=== PATIENT | male | born 1980 | race Caucasian/White ===

== ENCOUNTER 2017-03-02 20:56 | Emergency (ER) | payer OTHER ==
[2017-03-02 21:06] VITALS: BMI 33.4
[2017-03-02] MEDS ORDERED: TORADOL 60 MG VIAL IM ONE (21:37)
[2017-03-02] MEDS ORDERED: TORADOL 60 MG VIAL ONE (21:41)
--- NOTE | 2017-03-02 21:41 | DR.GENAD ---
HPI - Complaint/Symptoms Chief Complaint Doctors Comments: Patient states he was attempting to open a jammed door in [facility] and hit his right hand on the door about an hour ago. states the pain is 10 of 10 worst when he moves his fingers. States he has broken his 5th MC on his right hand before. He denies chest pain, SoB, cold, cough, fever or chills. States he can move his fingers but the little finger will not straighten out completely. Chief Complaint:: PT WAS ATTEMPTING TO OPEN A DOOR IN THE [facility]IDENT[facility] AND JAMMED HIS RT HAND - Nurses notes reviewed Nurses Notes Review: Yes - Source History Provided: Patient - Mode of Arrival Mode of Arrival: Ambulatory - Timing Onset of Chief Complaint: 03/02/17 Came on: Suddenly - Duration Duration: Constant How lon Duration: Hours - Location Location: right hand - Severity Severity: Severe - Modifying Factors Worsens:: movement Improves:: nothing PMH - PMH Past Medical History: Yes Past Medical History: Seizures Past Surgical History: Yes Surgical History: Ortho Surgery - Family History History of Family Medical Conditions: Yes Family Medical History: Cancer, Hypertension - Social History Alcohol Use: None Do you use any recreational Drugs:: No Lives With: Family Lives Where: Home - infectious screening In the last 2 months have you had wt loss of >10#?: NO Have you had fever, night sweats or hemotysis?: No Have you traveled outside the country in the last 6 months?: No Isolation: Standard ROS - Review of Systems Constitutional: No Symptoms Reported. negative: See HPI, Chills, Diaphoresis, Fever, Malaise, Weakness, Irritable, Fatigue, Loss of Appetite, Other Eyes: No Symptoms Reported ENTM: No Symptoms Reported Respiratoy: No Symptoms Reported. negative: See HPI, Productive Cough, Non- Productive Cough, Moist Cough, Dry Cough, Hacking Cough, Barking Cough, Brassy Cough, Orthopnea, Short of Breath, Stridor, Wheezing, Hemoptysis, Other Cardiovascular: No Symptoms Reported Gastrointestinal/Abdominal: No Symptoms Reported Genitourinary: No Symptoms Reported. negative: See HPI, Discharge, Dysuria, Frequency, Hematuria, Pain, Bleeding, Other Neurological: No Symptoms Reported Musculoskeletal: Right, Hand Integumentary: No Symptoms Reported, Bruises (right dorsal hand) Hematologic/Lymphatic: No Symptoms Reported. negative: See HPI, Anemia, Blood Clots, Easy Bleeding, Easy Bruising, Swollen Glands, Lymphadenopathy, Other Endocrine: No Symptoms Reported Psychiatric: No Symptoms Reported. negative: See HPI, Anxiety, Depression, Hallucinations, Excessive crying, Suicidal, Other PE - Vital Signs Vitals: Temperature 98.3 F Pulse Rate 88 Respiratory Rate 18 Blood Pressure [Left Arm] 144/94 Blood Pressure 142/101 O2 Sat by Pulse Oximetry 97 - General Limitations: No Limitations General Appearance: Alert, In Distress (moderate) - Head Head Exam: Normal Inspection, Atraumatic, Normocephalic - Eyes Eye exam: Normal Appearance, PERRL, EOMI. negative: Scleral Icterus, Conjunctival Injection, Nystagmus, Miosis, Mydrasis, Periorbital Swelling, Periorbital Tenderness, Other - ENT ENT Exam: Normal Exam, Normal Oropharynx, Normal External Ear Exam, Mucous Membranes Moist, TM's Normal Bilaterally External Ear Exam: Normal External Inspection TM/Canal Exam: Bilateral Normal Nose Exam: Normal Nose Exam Mouth Exam: Normal Inspection Throat Exam: Normal Inspection - Neck Neck Exam: Normal Inspection, Full ROM, Trachea Midline - Chest Chest Inspection: Normal Inspection, Symmetric Chest Wall Rise - Respiratory Respiratory Exam: Normal Lung Sounds Bilat Respiratory Exam: Bilateral Clear to Auscultation - Cardiovascular Cardiovascular Exam: Regular Rate, Normal Rhythm, Normal Heart Sounds - Abdominal Exam Abdominal Exam: Normal Inspection, Normal Bowel Sounds, Soft Abdominal Tenderness: negative: RUQ, RLQ, LUQ, LLQ, Epigastrium, Suprapubic, Diffuse, Mild, Moderate, Severe, Other - Extremities Extremities Exam: Normal Inspection, Full ROM, Tenderness (right hand tender with swelling, erythema, bruising dorsal hand), Normal Capillary Refill. negative: Edema, Joint Swelling, Calf Tenderness, Other - Back Back Exam: Normal Inspection, Full ROM - Neurologic Neurological Exam: Alert, Oriented X3, CN II-XII Intact, Normal Gait, Reflexes Normal - Psychiatric Psychiatric Exam: Normal Affect, Normal Mood - Skin Skin Exam: Warm, Dry, Intact, Normal Color ROR - Labs Reviewed Laboratory Results Reviewed?: Yes (all x-ray results reviewed and discussed with patient) - XRAY XRAY Interpreted by: Self (right hand: Old fracture 5th MC with extensive wiring; cannot rule out new fracture.) - Diagnosis Discharge Problem: old 5th metacarpal fracture, Hematoma, Puncture wound Contusion of right hand Qualifiers: Encounter type: initial encounter Qualified Code(s): S60.221A - Contusion of right hand, initial encounter - Discharge Plan Disposition: HOME, SELF-CARE Condition: Stable Prescriptions: Ibuprofen [MOTRIN TAB 800 MG *] 800 mg PO Q8H PRN #30 tab PRN Reason: Pain/Inflammation Mupirocin Oint [BACTROBAN OINT 2%] 1 applic EXT BID #22 gm - Follow ups/Referrals Follow ups/Referrals: NFD,None [Primary Care Provider] - 3 days JUSTINA ROWLAND [STAFF PHYSICIAN] - 3 days - Instructions Instructions: Hematoma, Metacarpal Fracture, [id number], Musculoskeletal Pain
[2017-03-02] MEDS ORDERED: BACITRACIN ZINC ONE (22:30)
[2017-03-02] MEDS ORDERED: BACTROBAN OINT TOP ONE (22:30)
[2017-03-02 22:55] VITALS: BP 142/94
--- NOTE | 2017-03-02 23:57 | RAD ---
Right hand-three views Indication: Right hand pain after trauma. Findings: Old right little finger fracture with hardware in position noted. Carpometacarpal joint DJD noted at the right little finger. Triscaphe DJD noted. There is no cortical lucency or malalignment seen. Impression: No acute fracture. Posttraumatic degenerative changes. Reported By:
== END 2017-03-02 22:52 | disposition home or self-care (01) ==
LOC: ER 20:56
PROC: 2W3LX1Z Immobilization of Right Lower Extremity using Splint (ICD-10-PCS; principal; 2017-03-02)
DX: S62.306A Unspecified fracture of fifth metacarpal bone, right hand, initial encounter for closed fracture (principal); S60.221A Contusion of right hand, initial encounter; S61.431A Puncture wound without foreign body of right hand, initial encounter; W23.1XXA Caught, crushed, jammed, or pinched between stationary objects, initial encounter; Y92.89 Other specified places as the place of occurrence of the external cause
CPT/HCPCS: 29260; 73130; 96372; 99282; J1885

== ENCOUNTER 2021-09-14 15:25 | Observation (INO) ==
[2021-09-14 16:00] LABS: BASOPHILS # (AUTO) 0.1 X10^3/uL (0.0-0.1); BASOPHILS % (AUTO) 0.9 % (0.2-1.0); EOSINOPHILS # (AUTO) 0.3 x10^3/uL (0.0-0.2); EOSINOPHILS % (AUTO) 3.9 % (0.9-2.9); HEMATOCRIT 40.4 % (42.0-54.0); HEMOGLOBIN 13.8 g/dL (13.5-18.0); LYMPHOCYTES # (AUTO) 2.5 X10^3/uL (1.3-2.9); LYMPHOCYTES % (AUTO) 35.2 % (21.0-51.0); MEAN CORPUSCULAR HEMOGLOBIN 31.4 pg (27.0-34.0); MEAN CORPUSCULAR HGB CONC 34.3 g/dL (33.0-35.0); MEAN CORPUSCULAR VOLUME 91.5 fL (80.0-100.0); MEAN PLATELET VOLUME 7.7 fL (7.4-11.0); MONOCYTES # (AUTO) 0.5 x10^3/uL (0.3-0.8); MONOCYTES % (AUTO) 7.4 % (0.0-13.0); NEUTROPHILS # (AUTO) 3.8 x10^3/uL (2.2-4.8); NEUTROPHILS % (AUTO) 52.6 % (42.0-75.0); RED BLOOD COUNT 4.41 X10^6/uL (4.7-6.0); WHITE BLOOD COUNT 7.2 X10^3/uL (3.6-10.0)
[2021-09-14 16:01] LABS: BILIRUBIN,URINE NEGATIVE (NEGATIVE); BLOOD/HEMOGLOBIN,URINE NEGATIVE (NEGATIVE); GLUCOSE, URINE NEGATIVE (NEGATIVE); KETONES,URINE NEGATIVE (NEGATIVE); LEUKOCYTE ESTERASE ,URINE NEGATIVE (NEGATIVE); NITRITES,URINE NEGATIVE (NEGATIVE); PROTEIN,URINE 1+ (NEGATIVE); UROBILINOGEN,URINE NORMAL (NORMAL)
[2021-09-14 16:22] LABS: ALANINE AMINOTRANSFERASE 24 Units/L (12-78); ALBUMIN 3.4 g/dL (3.4-5.0); ALKALINE PHOSPHATASE 84 Units/L (46-116); ASPARTATE AMINO TRANSFERASE 19 Units/L (15-37); BLOOD UREA NITROGEN 10 mg/dL (7-18); CALCIUM 8.9 mg/dL (8.5-10.1); CHLORIDE 102 mmol/L (98-107); COR NA(FOR HYPERGLY) 139 mmol/L (136-145); CREATININE 1.12 mg/dL (0.70-1.30); SODIUM 138 mmol/L (136-145); TOTAL PROTEIN 7.3 g/dL (6.4-8.2); eGFR NON BLACK RACES > 60 (>60)
[2021-09-14 16:22] LABS: APPEARANCE,URINE SLIGHTLY HAZY (CLEAR); COLOR,URINE YELLOW (YELLOW)
--- NOTE | 2021-09-14 16:27 | DR.PSYCH ---
HPI Time Seen Time Seen by Provider: 09/14/21 15:44 PCP Primary Care Physician: NFD Complaint Chief Complaint Doctors Comments: 40 y/o male presents with worsening R inguinal hernia. Has been fighting it for several months. Usually can get it back down on his own. Area has been more swollen, painful over the past week. Pain is sharp, of the R inguinal region. Having associated adominal cramping, spitting up. Pain does not radiate. Worse with palpation, movement. Nothing makes it better. 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 Pt was in [facility], earlier this year, for suicidal ideation. Pt has been off pain meds/drugs x 4 days. Is getting frustrated with the hernia pain, has been feeling suicidal due to the pain. Has considered shooting up heroin to end his pain. Pt presents voluntarily to the ER for help. Chief Complaint:: PT REPORTS THAT HE HAS A HERNIA TO HIS RIGHT GROIN THAT IS GOING INTO HIS TESTICAL , PT STATES I AM OFF OF PILLS , HEROIN , AND METH FOR FOUR DAYS - PT STATES " I AM HURTING AND CAN'T GET ANY RELIEF AND I AM GOING TO START USING AGAIN " MY STATES I WANT TO KILL MY SELF BECAUSE OF THE PAIN AND MY PLAN IS SHOOTING UP ".BR Self Treatment fo Chief Complaint: NONE Source History Provided: Patient Mode of Arrival Mode of Arrival: Ambulatory Timing Onset of Chief Complaint: 09/14/21 Context Ideation: Suicidal Plan: Other History of: Suicidal Thoughts Medication Compliance: No Quality Quality: None Hallucinations: None Associated signs and symptoms Intoxification: Marijuana, Cocaine and Amphetamines PMH PMH Past Medical History: Yes Past Medical History: Kidney Stones Past Surgical History: Yes Surgical History: Ortho Surgery Family History History of Family Medical Conditions: Yes Family Medical History: Diabetes Mellitus, Cancer, [place], Coronary Artery Disease, Heart Failure, Sudden Cardiac and Hypertension Social History Does patient currently use any type of tobacco product: Yes Have you used tobacco products in the last 12 months: Yes Type of Tobacco Use: Cigarettes Alcohol Use: None Do you use any recreational Drugs:: Yes (HEROIN, NORCO, THC, METH) Lives Where: Homeless Infectious screening In the last 2 months have you had wt loss of >10#?: NO Have you had fever, night sweats or hemotysis?: No Have you traveled outside the country in the last 6 months?: No Isolation: Standard ROS Review of Systems Constitutional: No Symptoms Reported Eyes: No Symptoms Reported ENTM: No Symptoms Reported Respiratoy: No Symptoms Reported Cardiovascular: No Symptoms Reported Gastrointestinal/Abdominal: See HPI Genitourinary: No Symptoms Reported Neurological: No Symptoms Reported Musculoskeletal: No Symptoms Reported Integumentary: No Symptoms Reported Hematologic/Lymphatic: No Symptoms Reported Psychiatric: Depression and Suicidal (ideations due to hernia pain) PE Vitals Vitals: Temperature 96.2 F Pulse Rate 104 Respiratory Rate 18 Blood Pressure [Right Arm] 164/90 Blood Pressure [Left Arm] 147/79 Blood Pressure 145/104 O2 Sat by Pulse Oximetry 98 General Limitations: No Limitations General Appearance: Alert and In No Apparent Distress Head Head Exam: Normal Inspection Eyes Eye exam: PERRL and EOMI ENT ENT Exam: Normal Oropharynx and Mucous Membranes Moist Respiratory Respiratory Exam: Normal Lung Sounds Bilat; negative Accessory Muscle Use or Respiratory Distress Cardiovascular Cardiovascular Exam: Regular Rate, Normal Rhythm and Normal Heart Sounds Abdominal Exam Abdominal Exam: Hernia (+ large R inguinal hernia, firm, tender, unable to reduce. + extends into R hemiscrotum) Extremities Extremities Exam: Normal Inspection and Full ROM; negative Tenderness Back Back Exam: Normal Inspection Neurologic Neurological Exam: Alert, Oriented X3 and CN II-XII Intact Psychiatric Psychiatric Exam: Normal Affect, Normal Mood and Other (Pt not acutely suicidal. Is frustrated regarding his chronic R hernia.); negative Homicidal Ideation or Suicidal Ideation Skin Skin Exam: Warm and Dry MDM Differential Diagnosis Differential diagnosis: Depression, Substance abuse and Suicidal COURSE Treatment Treatment: 40 y/o male with chronic hernia, worsened over the past week. Is now incarcerated, but probably not strangulated. W/u initiated. Given IV fluids. Labs are acceptable. Lactic acid 1.1, wnl. CT of abd/pelvis pending. Discussed with covering surgeon, Dr Bennett. He will admit the pt and repair the hernia in the AM. Pt informed of plan, to have hernia repaired in am. He is ok with that game plan, he is not suicidal, especially now that his hernia will be repaired tomorrow. Pt is not placed on a 1013. ROR Labs Reviewed Laboratory Results Reviewed?: Yes Result Diagrams: 09/14/21 15:50 09/14/21 15:50 Laboratory: WBC 7.2 X10^3/uL (3.6-10.0) 09/14/21 15:50 RBC 4.41 X10^6/uL (4.7-6.0) L 09/14/21 15:50 Hgb 13.8 g/dL (13.5-18.0) 09/14/21 15:50 Hct 40.4 % (42.0-54.0) L 09/14/21 15:50 MCV 91.5 fL (80.0-100.0) 09/14/21 15:50 MCH 31.4 pg (27.0-34.0) 09/14/21 15:50 MCHC 34.3 g/dL (33.0-35.0) 09/14/21 15:50 RDW 14.0 % (11.6-16.5) 09/14/21 15:50 Plt Count 242 X10^3/uL (150.0-450.0) 09/14/21 15:50 MPV 7.7 fL (7.4-11.0) 09/14/21 15:50 Neut % (Auto) 52.6 % (42.0-75.0) 09/14/21 15:50 Lymph % (Auto) 35.2 % (21.0-51.0) 09/14/21 15:50 [place] % (Auto) 7.4 % (0.0-13.0) 09/14/21 15:50 Eos % (Auto) 3.9 % (0.9-2.9) H 09/14/21 15:50 Baso % (Auto) 0.9 % (0.2-1.0) 09/14/21 15:50 Neut # (Auto) 3.8 x10^3/uL (2.2-4.8) 09/14/21 15:50 Lymph # (Auto) 2.5 X10^3/uL (1.3-2.9) 09/14/21 15:50 [place] # (Auto) 0.5 x10^3/uL (0.3-0.8) 09/14/21 15:50 Eos # (Auto) 0.3 x10^3/uL (0.0-0.2) H 09/14/21 15:50 Baso # (Auto) 0.1 X10^3/uL (0.0-0.1) 09/14/21 15:50 Absolute Nucleated RBC 0.1 /100WBC 09/14/21 15:50 Sodium 138 mmol/L (136-145) 09/14/21 15:50 Corrected Sodium 139 mmol/L (136-145) 09/14/21 15:50 Potassium 4.1 mmol/L (3.5-5.1) 09/14/21 15:50 Chloride 102 mmol/L (98-107) 09/14/21 15:50 Carbon Dioxide 31.0 mmol/L (21-32) 09/14/21 15:50 BUN 10 mg/dL (7-18) 09/14/21 15:50 Creatinine 1.12 mg/dL (0.70-1.30) 09/14/21 15:50 Est GFR (MDRD) Af Amer > 60 (>60) 09/14/21 15:50 Est GFR (MDRD) Non-Af > 60 (>60) 09/14/21 15:50 Glucose 128 mg/dL (65-99) H 09/14/21 15:50 Lactic Acid 1.1 mmol/L (0.4-2.0) 09/14/21 17:00 Calcium 8.9 mg/dL (8.5-10.1) 09/14/21 15:50 Corrected Calcium TNP 09/14/21 15:50 Total Bilirubin 0.40 mg/dL (0.2-1.0) 09/14/21 15:50 AST 19 Units/L (15-37) 09/14/21 15:50 ALT 24 Units/L (12-78) 09/14/21 15:50 Alkaline Phosphatase 84 Units/L (46-116) 09/14/21 15:50 Total Protein 7.3 g/dL (6.4-8.2) 09/14/21 15:50 Albumin 3.4 g/dL (3.4-5.0) 09/14/21 15:50 Globulin 3.9 g/dL (2.5-4.5) 09/14/21 15:50 Albumin/Globulin Ratio 0.9 Ratio (1.1-2.1) L 09/14/21 15:50 Specimen Type Clean catch urine 09/14/21 15:51 Urine Color Yellow (YELLOW) 09/14/21 15:51 Urine Appearance Slightly hazy (CLEAR) 09/14/21 15:51 Urine pH 6.0 (5.0 - 8.0) 09/14/21 15:51 Ur Specific [place] 1.025 (1.000-1.030) 09/14/21 15:51 Urine Protein 1+ (NEGATIVE) 09/14/21 15:51 Urine Glucose (UA) Negative (NEGATIVE) 09/14/21 15:51 Urine Ketones Negative (NEGATIVE) 09/14/21 15:51 Urine Blood Negative (NEGATIVE) 09/14/21 15:51 Urine Nitrite Negative (NEGATIVE) 09/14/21 15:51 Urine Bilirubin Negative (NEGATIVE) 09/14/21 15:51 Urine Urobilinogen Normal (NORMAL) 09/14/21 15:51 Ur Leukocyte Esterase Negative (NEGATIVE) 09/14/21 15:51 Urine RBC 0-2 /HPF (0-3) 09/14/21 15:51 Urine WBC 0-2 /HPF (0-5) 09/14/21 15:51 Ur Squamous Epith Cells Rare /HPF (NEGATIVE) 09/14/21 15:51 Urine Bacteria Trace /HPF (NEGATIVE) 09/14/21 15:51 Ur Culture Indicated? No/not indicated 09/14/21 15:51 Urine Opiates Screen Negative (NEG=<300) 09/14/21 15:51 Urine Methadone Screen Negative (NEG=<300) 09/14/21 15:51 Ur Barbiturates Screen Negative (NEG=<200) 09/14/21 15:51 Ur Phencyclidine Scrn Negative (NEG=<25) 09/14/21 15:51 Ur Amphetamines Screen Negative (NEG=<1000) 09/14/21 15:51 U Benzodiazepines Scrn Negative (NEG=<200) 09/14/21 15:51 Urine Cocaine Screen Negative (NEG=<300) 09/14/21 15:51 U Marijuana (THC) Screen Positive (NEG=<50) A 09/14/21 15:51 SARS-CoV-2 (PCR) Negative (NEGATIVE) 09/14/21 15:51 XRAY XRAY Interpreted by: Self X-ray Results: CT abd/pelvis with large R inguinal hernia, extending into scrotum. Opioid Opioid Risk Tool Age (Raymundo box if 16-45): Yes History of Preadolescent Sexual Abuse: No Total: 1 Total Score Risk Category: Low Risk Copyright: [place] predicting aberrant behaviors Diagnosis Discharge Problem: Incarcerated right inguinal hernia
[2021-09-14 16:45] LABS: BACTERIA,URINE TRACE /HPF (NEGATIVE); RBC,URINE 0-2 /HPF (0-3); SQUAMOUS EPITHELIAL CELL,UR RARE /HPF (NEGATIVE)
[2021-09-14] MEDS ORDERED: MORPHINE SULFATE INJ 4 MG ONE (17:38)
[2021-09-14] MEDS ORDERED: MORPHINE SULFATE INJ 4 MG IVP ONE (17:40)
[2021-09-14] MEDS ORDERED: ZOFRAN INJ 4 MG VIAL IVP PRN (18:05)
--- NOTE | 2021-09-14 18:13 | CT ---
HISTORYHERNIA TO HIS RIGHT GROIN THAT IS GOING INTO HIS TESTICAL, PT STATES I AM OFF OF PILLS, HEROIN, AND METH FOR FOUR DAYS. "I AM HURTING AND CAN'T GET ANY RELIEF"STUDYABDOMEN/PELVIS W/O CONCOMPARISONNoneTECHNIQUENon-contrasted axial CT images of the abdomen and pelvis were obtained and reformatted into coronal and sagittal planes for further evaluation.Radiation dose: 722.20 mGy-cm total DLPFINDINGSLung bases are clear.Stomach appears normal.Solid visceral organs of the upper abdomen are unremarkable.Gallbladder appears normal.No intra or extrahepatic biliary dilatation.Unremarkable appearance of the kidneys.No hydronephrosis, hydroureter or ureteral calculus.Unremarkable appearance of the urinary bladder.Single loop of colon herniated into the right inguinal canal with no significant inflammatory changes. Mild wall thickening of the colon proximal, within and distal to the right inguinal hernia without edema within the mesentery. No evidence of bowel obstruction.Reproductive structures are unremarkable.No evidence of acute appendicitis.No pneumoperitoneum.No significant fluid collection.No adenopathy.No acute osseous abnormality.Status post disc arthroplasty and posterior spinal fusion at L4-L5.Multilevel mild degenerative disc disease without vertebral body height loss.IMPRESSIONSingle loop of colon herniated into the right inguinal canal with no significant inflammatory changes. Mild wall thickening of the colon proximal, within and distal to the right inguinal hernia without edema within the mesentery. No evidence of bowel obstruction. The colonic wall thickening may be chronic. Recommend correlation with prior imaging if available.Electronically signed by: Cipriano Hawthorne (Sep 14, 2021 18:11:57)
[2021-09-14] MEDS ORDERED: D5 1/2 NS 1,000 ML 1,000 ML IV ONE (18:54)
[2021-09-14] MEDS: D5 1/2 NS 1,000 ML 1,000 ML IV SCH (19:19)
[2021-09-14] MEDS ORDERED: APRESOLINE INJ 20 MG VIAL IVP PRN (19:23)
[2021-09-14] MEDS: MORPHINE SULFATE INJ 4 MG IVP PRN ×2 (19:34→23:58)
[2021-09-14 19:44] VITALS: BMI 27.8
[2021-09-15] MEDS: D5 1/2 NS 1,000 ML 1,000 ML IV SCH ×5 (02:03→23:37)
[2021-09-15] MEDS: MORPHINE SULFATE INJ 4 MG IVP PRN ×6 (03:54→23:40)
[2021-09-15 05:04] LABS: BASOPHILS % (AUTO) 0.5 % (0.2-1.0); EOSINOPHILS # (AUTO) 0.3 x10^3/uL (0.0-0.2); EOSINOPHILS % (AUTO) 4.4 % (0.9-2.9); LYMPHOCYTES % (AUTO) 43.1 % (21.0-51.0); MEAN CORPUSCULAR HEMOGLOBIN 31.1 pg (27.0-34.0); MEAN CORPUSCULAR HGB CONC 34.3 g/dL (33.0-35.0); MEAN CORPUSCULAR VOLUME 90.7 fL (80.0-100.0); MEAN PLATELET VOLUME 8.1 fL (7.4-11.0); MONOCYTES # (AUTO) 0.5 x10^3/uL (0.3-0.8); NEUTROPHILS # (AUTO) 3.1 x10^3/uL (2.2-4.8); RED BLOOD COUNT 4.19 X10^6/uL (4.7-6.0)
[2021-09-15 05:17] LABS: ALANINE AMINOTRANSFERASE 21 Units/L (12-78); ALBUMIN 2.8 g/dL (3.4-5.0); ALKALINE PHOSPHATASE 82 Units/L (46-116); ASPARTATE AMINO TRANSFERASE 15 Units/L (15-37); BLOOD UREA NITROGEN 9 mg/dL (7-18); CARBON DIOXIDE 29.5 mmol/L (21-32); CHLORIDE 104 mmol/L (98-107); COR NA(FOR HYPERGLY) 138 mmol/L (136-145); CREATININE 1.01 mg/dL (0.70-1.30); SODIUM 138 mmol/L (136-145); TOTAL PROTEIN 6.3 g/dL (6.4-8.2); eGFR NON BLACK RACES > 60 (>60)
[2021-09-15] MEDS ORDERED: ANCEF VIAL 1 GRAM ONE (08:06)
[2021-09-15] MEDS ORDERED: LR 1,000 ML IV 1,000 ML IV ONE (08:07)
[2021-09-15] MEDS ORDERED: NS 100 ML IV 100 ML ONE (08:07)
--- NOTE | 2021-09-15 08:09 | DR.H&P ---
H&P History & Physical for Day of: H&P Date: 09/14/21 Chief Complaint Chief Complaint: Hernia right groin that can no longer be reduced by the patient. Allergies Allergies Allergy/AdvReac Type Severity Reaction Status Date / Time No Known Drug Allergies Allergy Verified 03/02/17 20:58 History of Present Illness History of Present Illness: 40 year old male with known history of right inguinal hernia that has been able to be reduced by the patient until today. He has been seen in the emergency room multiple times for this and referred to general surgery but has not kept his appointments. Past history significant for significant drug use. He denies using any drugs, primarily marijuana, since last week. He does not take narcotics on a regular basis. He has had a history of seizures secondary to drug withdrawal in the past. Past Medical History Past Medical History: Hypertension, Kidney Stones and Seizures (in the past believed to be secondary to drug withdrawal, on no anti-seizure medications) Past Surgical History Surgical History: Ortho Surgery (left hand ORIF) and Other ( Back surgery to remove [address] ) Family History Family Medical History: Cancer, [place], Coronary Artery Disease, Heart Failure and Hypertension Social History Does patient currently use any type of tobacco product: Yes Have you used tobacco products in the last 12 months: Yes Type of Tobacco Use: Cigarettes Does any household member use tobacco: No Alcohol Use: None Drug Use: Marijuana and Other Medications Home Medications: No Known Drug Allergies Allergy (Verified 03/02/17 20:58) Labs Result Diagrams: 09/15/21 03:47 09/15/21 03:47 Labs: Laboratory WBC 7.0 X10^3/uL (3.6-10.0) 09/15/21 03:47 RBC 4.19 X10^6/uL (4.7-6.0) L 09/15/21 03:47 Hgb 13.0 g/dL (13.5-18.0) L 09/15/21 03:47 Hct 38.0 % (42.0-54.0) L 09/15/21 03:47 MCV 90.7 fL (80.0-100.0) 09/15/21 03:47 MCH 31.1 pg (27.0-34.0) 09/15/21 03:47 MCHC 34.3 g/dL (33.0-35.0) 09/15/21 03:47 RDW 14.0 % (11.6-16.5) 09/15/21 03:47 Plt Count 229 X10^3/uL (150.0-450.0) 09/15/21 03:47 MPV 8.1 fL (7.4-11.0) 09/15/21 03:47 Neut % (Auto) 45.0 % (42.0-75.0) 09/15/21 03:47 Lymph % (Auto) 43.1 % (21.0-51.0) 09/15/21 03:47 [place] % (Auto) 7.0 % (0.0-13.0) 09/15/21 03:47 Eos % (Auto) 4.4 % (0.9-2.9) H 09/15/21 03:47 Baso % (Auto) 0.5 % (0.2-1.0) 09/15/21 03:47 Neut # (Auto) 3.1 x10^3/uL (2.2-4.8) 09/15/21 03:47 Lymph # (Auto) 3.0 X10^3/uL (1.3-2.9) H 09/15/21 03:47 [place] # (Auto) 0.5 x10^3/uL (0.3-0.8) 09/15/21 03:47 Eos # (Auto) 0.3 x10^3/uL (0.0-0.2) H 09/15/21 03:47 Baso # (Auto) 0.0 X10^3/uL (0.0-0.1) 09/15/21 03:47 Absolute Nucleated RBC 0.1 /100WBC 09/15/21 03:47 PT 13.3 SECONDS (11.8-14.3) 09/15/21 03:47 INR Target Range - 09/15/21 03:47 INR 1.04 (0.8-1.3) 09/15/21 03:47 APTT 31.8 SECONDS (22.9-36.5) 09/15/21 03:47 PTT Comment - 09/15/21 03:47 Sodium 138 mmol/L (136-145) 09/15/21 03:47 Corrected Sodium 138 mmol/L (136-145) 09/15/21 03:47 Potassium 3.3 mmol/L (3.5-5.1) L 09/15/21 03:47 Chloride 104 mmol/L (98-107) 09/15/21 03:47 Carbon Dioxide 29.5 mmol/L (21-32) 09/15/21 03:47 BUN 9 mg/dL (7-18) 09/15/21 03:47 Creatinine 1.01 mg/dL (0.70-1.30) 09/15/21 03:47 Est GFR (MDRD) Af Amer > 60 (>60) 09/15/21 03:47 Est GFR (MDRD) Non-Af > 60 (>60) 09/15/21 03:47 Glucose 112 mg/dL (65-99) H 09/15/21 03:47 Lactic Acid 1.1 mmol/L (0.4-2.0) 09/14/21 17:00 Calcium 8.0 mg/dL (8.5-10.1) L 09/15/21 03:47 Corrected Calcium 9.0 mg/dL (8.5-10.1) 09/15/21 03:47 Total Bilirubin 0.20 mg/dL (0.2-1.0) 09/15/21 03:47 AST 15 Units/L (15-37) 09/15/21 03:47 ALT 21 Units/L (12-78) 09/15/21 03:47 Alkaline Phosphatase 82 Units/L (46-116) 09/15/21 03:47 Total Protein 6.3 g/dL (6.4-8.2) L 09/15/21 03:47 Albumin 2.8 g/dL (3.4-5.0) L 09/15/21 03:47 Globulin 3.5 g/dL (2.5-4.5) 09/15/21 03:47 Albumin/Globulin Ratio 0.8 Ratio (1.1-2.1) L 09/15/21 03:47 Specimen Type Clean catch urine 09/14/21 15:51 Urine Color Yellow (YELLOW) 09/14/21 15:51 Urine Appearance Slightly hazy (CLEAR) 09/14/21 15:51 Urine pH 6.0 (5.0 - 8.0) 09/14/21 15:51 Ur Specific [place] 1.025 (1.000-1.030) 09/14/21 15:51 Urine Protein 1+ (NEGATIVE) 09/14/21 15:51 Urine Glucose (UA) Negative (NEGATIVE) 09/14/21 15:51 Urine Ketones Negative (NEGATIVE) 09/14/21 15:51 Urine Blood Negative (NEGATIVE) 09/14/21 15:51 Urine Nitrite Negative (NEGATIVE) 09/14/21 15:51 Urine Bilirubin Negative (NEGATIVE) 09/14/21 15:51 Urine Urobilinogen Normal (NORMAL) 09/14/21 15:51 Ur Leukocyte Esterase Negative (NEGATIVE) 09/14/21 15:51 Urine RBC 0-2 /HPF (0-3) 09/14/21 15:51 Urine WBC 0-2 /HPF (0-5) 09/14/21 15:51 Ur Squamous Epith Cells Rare /HPF (NEGATIVE) 09/14/21 15:51 Urine Bacteria Trace /HPF (NEGATIVE) 09/14/21 15:51 Ur Culture Indicated? No/not indicated 09/14/21 15:51 Urine Opiates Screen Negative (NEG=<300) 09/14/21 15:51 Urine Methadone Screen Negative (NEG=<300) 09/14/21 15:51 Ur Barbiturates Screen Negative (NEG=<200) 09/14/21 15:51 Ur Phencyclidine Scrn Negative (NEG=<25) 09/14/21 15:51 Ur Amphetamines Screen Negative (NEG=<1000) 09/14/21 15:51 U Benzodiazepines Scrn Negative (NEG=<200) 09/14/21 15:51 Urine Cocaine Screen Negative (NEG=<300) 09/14/21 15:51 U Marijuana (THC) Screen Positive (NEG=<50) A 09/14/21 15:51 SARS-CoV-2 (PCR) Negative (NEGATIVE) 09/14/21 15:51 Review of Systems Constitutional: See HPI Eyes: No Symptoms Reported ENT: No Symptoms Reported Respiratory: No Symptoms Reported Cardiovascular: No Symptoms Reported Gastrointestinal: No Symptoms Reported Genitourinary: See HPI Musculoskeletal: No Symptoms Reported Skin: No Symptoms Reported Physical Exam Vital Signs: Temperature 97.7 F Pulse Rate [Bilateral Radial] 83 Pulse Rate 104 Respiratory Rate 20 Blood Pressure [Right Arm] 168/88 Blood Pressure [Left Arm] 147/79 Blood Pressure 145/104 O2 Sat by Pulse Oximetry 97 Oriented: Normal, Time, Person and Place Eyes: Normal Ear: Normal Nose: Normal Throat: Normal Respiratory: Clear Throughout Cardiovascular: Normal : Other (Large incarcerated right inguinal hernia which I could not reduce. No significant pain. ) Auscultation: Bowel Sounds: Normal Tenderness: Normal Skin: Normal Musculoskeletal: Normal Psychiatric: Anxiety (Patient complaining of anxiety. He has requested be e valuated for drug treatment center which he has been at before. We will have to get mangagement involved for this. ) Mood Description: Anxious Affect: Anxious Speech Pattern: Clear Assessment/Plan (1) Incarcerated right inguinal hernia: Status: Acute Plan: Will plan surgical correction of incarcerated hernia . I explained the risks and benefits which include possible bowel injury. I told him I would be using mesh to perform the repair. He agrees to all of this.
[2021-09-15] MEDS ORDERED: DIPRIVAN VIAL 20 ML ONE (08:39)
[2021-09-15] MEDS ORDERED: ZEMURON 100 MG VIAL ONE (08:39)
[2021-09-15] MEDS ORDERED: XYLOCAINE 2 % (PLAIN) ONE (08:39)
[2021-09-15] MEDS ORDERED: QUELICIN (OR ANECTINE) ONE (08:39)
[2021-09-15] MEDS ORDERED: FENTANYL VIAL INJ 250 mcg ONE (08:39)
[2021-09-15] MEDS ORDERED: VERSED ONE (08:39)
[2021-09-15] MEDS ORDERED: ZOFRAN INJ 4 MG VIAL ONE (08:43)
[2021-09-15] MEDS ORDERED: BRIDION ONE (08:44)
[2021-09-15] MEDS ORDERED: SUPRANE ONE (09:00)
[2021-09-15] MEDS ORDERED: BENADRYL INJ 50 MG VIAL IVP PRN (09:33)
[2021-09-15] MEDS ORDERED: REGLAN INJ 10 MG VIAL IVP PRN (09:33)
[2021-09-15] MEDS ORDERED: ZOFRAN INJ 4 MG VIAL IVP PRN (09:33)
[2021-09-15] MEDS ORDERED: BARHEMSYS INJ IVP PRN (09:33)
[2021-09-15] MEDS ORDERED: PHENERGAN INJ 25 MG IM PRN (09:33)
[2021-09-15] MEDS ORDERED: DILAUDID INJ ONE (10:13)
[2021-09-15] MEDS: DILAUDID INJ IVP PRN ×2 (10:14→10:27)
--- NOTE | 2021-09-15 10:29 | OR.IMMED ---
IMMEDIATE POST-OP NOTE Immediate Post-Op Note Pre-Op Diagnosis: Incarcerated right inguinal hernia Post-Op Diagnosis: Incarcerated direct right inguinal hernia Procedure: Open repair incarcerated direct right inguinal hernia Description of Procedure: see operative summary Surgeon/Managing Consultant: Donald Findings: incarcerated right direct inguinal hernia Specimens Removed: none Estimated Blood Loss: minimal Complications: none Discharge Progress Notes: Return to floor, po pain medications, regular diet, discharge soon. Final Diagnosis: Incarcerated direct right inguinal hernia
[2021-09-15] MEDS: PERCOCET TAB 5/325 MG PO PRN ×3 (14:03→21:52)
[2021-09-15] MEDS ORDERED: K-RIDER 10 MEQ/NS 100 ML 10 MEQ/100 ML BAG IV PRN (16:49)
[2021-09-15] MEDS ORDERED: MICRO K EXTEN CAP 10 MEQ PO PRN (16:49)
[2021-09-15] MEDS ORDERED: POTASSIUM CHLORIDE LIQ 20 MEQ UDC PO PRN (16:49)
[2021-09-15] MEDS ORDERED: K-DUR TAB 20 MEQ PO PRN (16:49)
[2021-09-15] MEDS ORDERED: POTASSIUM CHL 40 MEQ/NS 0.45% 500 ML IV PRN (16:49)
[2021-09-15] MEDS ORDERED: POTASSIUM CHL 60 MEQ/NS 0.45% 500 ML IV PRN (16:49)
[2021-09-15] MEDS ORDERED: KLOR-CON PO PRN (16:49)
[2021-09-16] MEDS: D5 1/2 NS 1,000 ML 1,000 ML IV SCH ×3 (01:53→09:56)
[2021-09-16] MEDS: PERCOCET TAB 5/325 MG PO PRN ×2 (01:53→09:54)
[2021-09-16] MEDS: MORPHINE SULFATE INJ 4 MG IVP PRN ×3 (03:52→12:03)
[2021-09-16] MEDS ORDERED: LOVENOX INJ 40 MG SYR SC SCH (09:00)
[2021-09-16 09:57] VITALS: BP 139/93
--- NOTE | 2021-09-16 11:41 | W.DIS.FURT ---
Summary of Discharge Discharge Summary of Date Date of Exam: 09/14/21 Admission Diagnosis Patient Problems (Updated 09/14/21 @ 17:53 by Shane Guzman) Incarcerated right inguinal hernia (Acute) K40.30 Hospital Course: 40 yo male presented with incarcerated hernia of the right groin that could not be reduced. He has been seen multiple times in the ER for this hernia when it was reducible and would be refereed to a surgeon but never went to the [facility] . He was admitted and the next day 09/15/2021 he underwent repair of an incarcerated right direct inguinal hernia . He is to be discharged today on Percocet, 5mg , 1 by mouth every 6 hrs PRN pain. He will follow up with Dr. Benntet in 1 week in the office. Patient has history of drug rehab for cannibus in the past and expressed a desire to go back. He was referred to do this on his own. His drug screen on admission was positive only for THC. Vital Signs: Vital Signs (72 hours) 09/14/21 15:27 09/14/21 17:51 09/14/21 18:06 Temperature 96.2 F L 98.5 F Pulse Rate 104 H Pulse Rate [Bilateral Radial] 85 Respiratory Rate 22 18 20 Blood Pressure 145/104 Blood Pressure [Right Arm] O2 Sat by Pulse Oximetry 98 99 Oxygen Delivery Method Room Air Room Air 09/14/21 19:27 09/14/21 19:34 09/14/21 18:21 Temperature Pulse Rate Pulse Rate [Bilateral Radial] Respiratory Rate 21 21 Blood Pressure Blood Pressure [Right Arm] O2 Sat by Pulse Oximetry Oxygen Delivery Method Room Air 09/14/21 20:04 09/14/21 20:00 09/14/21 23:58 Temperature 98.2 F Pulse Rate Pulse Rate [Bilateral Radial] 82 Respiratory Rate 21 20 20 Blood Pressure Blood Pressure [Right Arm] 158/80 O2 Sat by Pulse Oximetry 98 Oxygen Delivery Method Room Air 09/15/21 00:00 09/15/21 00:28 09/15/21 03:54 Temperature 98.3 F Pulse Rate Pulse Rate [Bilateral Radial] 86 Respiratory Rate 20 20 20 Blood Pressure Blood Pressure [Right Arm] 143/86 O2 Sat by Pulse Oximetry 96 Oxygen Delivery Method Room Air 09/15/21 04:00 09/15/21 04:24 09/15/21 07:53 Temperature 97.7 F Pulse Rate Pulse Rate [Bilateral Radial] 83 Respiratory Rate 18 20 20 Blood Pressure Blood Pressure [Right Arm] 168/88 O2 Sat by Pulse Oximetry 97 Oxygen Delivery Method Room Air 09/15/21 08:03 09/15/21 08:09 09/15/21 10:14 Temperature Pulse Rate 62 Pulse Rate [Bilateral Radial] Respiratory Rate 16 20 Blood Pressure 159/109 Blood Pressure [Right Arm] O2 Sat by Pulse Oximetry 97 Oxygen Delivery Method Room Air Room Air 09/15/21 10:09 09/15/21 10:14 09/15/21 10:19 Temperature 97.5 F L Pulse Rate 80 85 75 Pulse Rate [Bilateral Radial] Respiratory Rate 18 18 18 Blood Pressure 161/98 171/104 162/111 Blood Pressure [Right Arm] O2 Sat by Pulse Oximetry 97 97 97 Oxygen Delivery Method Aerosol Face Tent Aerosol Face Tent Aerosol Face Tent 09/15/21 10:24 09/15/21 10:27 09/15/21 10:29 Temperature Pulse Rate 74 81 Pulse Rate [Bilateral Radial] Respiratory Rate 18 18 18 Blood Pressure 165/113 166/109 Blood Pressure [Right Arm] O2 Sat by Pulse Oximetry 97 97 Oxygen Delivery Method Aerosol Face Tent Nasal Cannula 09/15/21 10:34 09/15/21 10:39 09/15/21 11:30 Temperature Pulse Rate 75 71 Pulse Rate [Bilateral Radial] Respiratory Rate 18 18 18 Blood Pressure 148/94 130/89 Blood Pressure [Right Arm] O2 Sat by Pulse Oximetry 97 97 Oxygen Delivery Method Nasal Cannula Nasal Cannula 09/15/21 14:03 09/15/21 12:00 09/15/21 08:00 Temperature 97.7 F Pulse Rate Pulse Rate [Bilateral Radial] 69 Respiratory Rate 18 18 18 Blood Pressure Blood Pressure [Right Arm] 133/91 O2 Sat by Pulse Oximetry 97 Oxygen Delivery Method Room Air 09/15/21 10:25 09/15/21 10:55 09/15/21 10:40 Temperature 97.6 F 97.7 F 97.5 F L Pulse Rate Pulse Rate [Bilateral Radial] 69 77 81 Respiratory Rate 18 18 18 Blood Pressure Blood Pressure [Right Arm] 135/88 145/91 129/86 O2 Sat by Pulse Oximetry 95 95 97 Oxygen Delivery Method Room Air Room Air Room Air 09/15/21 11:10 09/15/21 11:25 09/15/21 12:25 Temperature 97.5 F L 97.7 F 97.5 F L Pulse Rate Pulse Rate [Bilateral Radial] 71 72 70 Respiratory Rate 18 18 20 Blood Pressure Blood Pressure [Right Arm] 139/92 140/95 149/104 O2 Sat by Pulse Oximetry 94 L 95 99 Oxygen Delivery Method Room Air Room Air Room Air 09/15/21 15:03 09/15/21 15:52 09/15/21 13:25 Temperature 97.5 F L Pulse Rate Pulse Rate [Bilateral Radial] 78 Respiratory Rate 18 18 20 Blood Pressure Blood Pressure [Right Arm] 154/89 O2 Sat by Pulse Oximetry 98 Oxygen Delivery Method Room Air 09/15/21 14:25 09/15/21 15:25 09/15/21 17:18 Temperature 97.6 F 97.5 F L Pulse Rate Pulse Rate [Bilateral Radial] 80 77 Respiratory Rate 20 20 18 Blood Pressure Blood Pressure [Right Arm] 144/99 150/96 O2 Sat by Pulse Oximetry 99 99 Oxygen Delivery Method Room Air Room Air 09/15/21 17:55 09/15/21 18:55 09/15/21 19:58 Temperature Pulse Rate Pulse Rate [Bilateral Radial] Respiratory Rate 18 18 20 Blood Pressure Blood Pressure [Right Arm] O2 Sat by Pulse Oximetry Oxygen Delivery Method 09/15/21 20:00 09/15/21 20:28 09/15/21 19:00 Temperature 97.9 F Pulse Rate Pulse Rate [Bilateral Radial] 82 Respiratory Rate 20 20 Blood Pressure Blood Pressure [Right Arm] 161/90 O2 Sat by Pulse Oximetry 98 Oxygen Delivery Method Room Air Room Air 09/15/21 21:52 09/15/21 22:52 09/15/21 23:40 Temperature Pulse Rate Pulse Rate [Bilateral Radial] Respiratory Rate 20 20 20 Blood Pressure Blood Pressure [Right Arm] O2 Sat by Pulse Oximetry Oxygen Delivery Method 09/16/21 00:00 09/16/21 00:10 09/16/21 01:53 Temperature 97.9 F Pulse Rate Pulse Rate [Bilateral Radial] 77 Respiratory Rate 20 20 20 Blood Pressure Blood Pressure [Right Arm] 169/96 O2 Sat by Pulse Oximetry 98 Oxygen Delivery Method Room Air 09/16/21 02:53 09/16/21 03:52 09/16/21 04:00 Temperature 98.1 F Pulse Rate Pulse Rate [Bilateral Radial] 71 Respiratory Rate 20 20 20 Blood Pressure Blood Pressure [Right Arm] 160/90 O2 Sat by Pulse Oximetry 99 Oxygen Delivery Method Room Air 09/16/21 04:22 09/16/21 07:43 09/16/21 08:01 Temperature Pulse Rate Pulse Rate [Bilateral Radial] Respiratory Rate 20 20 Blood Pressure Blood Pressure [Right Arm] O2 Sat by Pulse Oximetry Oxygen Delivery Method Room Air 09/16/21 09:54 09/16/21 08:31 09/16/21 08:00 Temperature 98.2 F Pulse Rate Pulse Rate [Bilateral Radial] 84 Respiratory Rate 20 20 20 Blood Pressure Blood Pressure [Right Arm] 139/93 O2 Sat by Pulse Oximetry 97 Oxygen Delivery Method Room Air Labs: Laboratory Last Values WBC 7.0 X10^3/uL (3.6-10.0) 09/15/21 03:47 RBC 4.19 X10^6/uL (4.7-6.0) L 09/15/21 03:47 Hgb 13.0 g/dL (13.5-18.0) L 09/15/21 03:47 Hct 38.0 % (42.0-54.0) L 09/15/21 03:47 MCV 90.7 fL (80.0-100.0) 09/15/21 03:47 MCH 31.1 pg (27.0-34.0) 09/15/21 03:47 MCHC 34.3 g/dL (33.0-35.0) 09/15/21 03:47 RDW 14.0 % (11.6-16.5) 09/15/21 03:47 Plt Count 229 X10^3/uL (150.0-450.0) 09/15/21 03:47 MPV 8.1 fL (7.4-11.0) 09/15/21 03:47 Neut % (Auto) 45.0 % (42.0-75.0) 09/15/21 03:47 Lymph % (Auto) 43.1 % (21.0-51.0) 09/15/21 03:47 Burnett % (Auto) 7.0 % (0.0-13.0) 09/15/21 03:47 Eos % (Auto) 4.4 % (0.9-2.9) H 09/15/21 03:47 Baso % (Auto) 0.5 % (0.2-1.0) 09/15/21 03:47 Neut # (Auto) 3.1 x10^3/uL (2.2-4.8) 09/15/21 03:47 Lymph # (Auto) 3.0 X10^3/uL (1.3-2.9) H 09/15/21 03:47 Burnett # (Auto) 0.5 x10^3/uL (0.3-0.8) 09/15/21 03:47 Eos # (Auto) 0.3 x10^3/uL (0.0-0.2) H 09/15/21 03:47 Baso # (Auto) 0.0 X10^3/uL (0.0-0.1) 09/15/21 03:47 Absolute Nucleated RBC 0.1 /100WBC 09/15/21 03:47 PT 13.3 SECONDS (11.8-14.3) 09/15/21 03:47 INR Target Range - 09/15/21 03:47 INR 1.04 (0.8-1.3) 09/15/21 03:47 APTT 31.8 SECONDS (22.9-36.5) 09/15/21 03:47 PTT Comment - 09/15/21 03:47 Sodium 138 mmol/L (136-145) 09/15/21 03:47 Corrected Sodium 138 mmol/L (136-145) 09/15/21 03:47 Potassium 4.1 mmol/L (3.5-5.1) 09/16/21 04:42 Chloride 104 mmol/L (98-107) 09/15/21 03:47 Carbon Dioxide 29.5 mmol/L (21-32) 09/15/21 03:47 BUN 9 mg/dL (7-18) 09/15/21 03:47 Creatinine 1.01 mg/dL (0.70-1.30) 09/15/21 03:47 Est GFR (MDRD) Af Amer > 60 (>60) 09/15/21 03:47 Est GFR (MDRD) Non-Af > 60 (>60) 09/15/21 03:47 Glucose 112 mg/dL (65-99) H 09/15/21 03:47 Lactic Acid 1.1 mmol/L (0.4-2.0) 09/14/21 17:00 Calcium 8.0 mg/dL (8.5-10.1) L 09/15/21 03:47 Corrected Calcium 9.0 mg/dL (8.5-10.1) 09/15/21 03:47 Total Bilirubin 0.20 mg/dL (0.2-1.0) 09/15/21 03:47 AST 15 Units/L (15-37) 09/15/21 03:47 ALT 21 Units/L (12-78) 09/15/21 03:47 Alkaline Phosphatase 82 Units/L (46-116) 09/15/21 03:47 Total Protein 6.3 g/dL (6.4-8.2) L 09/15/21 03:47 Albumin 2.8 g/dL (3.4-5.0) L 09/15/21 03:47 Globulin 3.5 g/dL (2.5-4.5) 09/15/21 03:47 Albumin/Globulin Ratio 0.8 Ratio (1.1-2.1) L 09/15/21 03:47 Specimen Type Clean catch urine 09/14/21 15:51 Urine Color Yellow (YELLOW) 09/14/21 15:51 Urine Appearance Slightly hazy (CLEAR) 09/14/21 15:51 Urine pH 6.0 (5.0 - 8.0) 09/14/21 15:51 Ur Specific [place] 1.025 (1.000-1.030) 09/14/21 15:51 Urine Protein 1+ (NEGATIVE) 09/14/21 15:51 Urine Glucose (UA) Negative (NEGATIVE) 09/14/21 15:51 Urine Ketones Negative (NEGATIVE) 09/14/21 15:51 Urine Blood Negative (NEGATIVE) 09/14/21 15:51 Urine Nitrite Negative (NEGATIVE) 09/14/21 15:51 Urine Bilirubin Negative (NEGATIVE) 09/14/21 15:51 Urine Urobilinogen Normal (NORMAL) 09/14/21 15:51 Ur Leukocyte Esterase Negative (NEGATIVE) 09/14/21 15:51 Urine RBC 0-2 /HPF (0-3) 09/14/21 15:51 Urine WBC 0-2 /HPF (0-5) 09/14/21 15:51 Ur Squamous Epith Cells Rare /HPF (NEGATIVE) 09/14/21 15:51 Urine Bacteria Trace /HPF (NEGATIVE) 09/14/21 15:51 Ur Culture Indicated? No/not indicated 09/14/21 15:51 Urine Opiates Screen Negative (NEG=<300) 09/14/21 15:51 Urine Methadone Screen Negative (NEG=<300) 09/14/21 15:51 Ur Barbiturates Screen Negative (NEG=<200) 09/14/21 15:51 Ur Phencyclidine Scrn Negative (NEG=<25) 09/14/21 15:51 Ur Amphetamines Screen Negative (NEG=<1000) 09/14/21 15:51 U Benzodiazepines Scrn Negative (NEG=<200) 09/14/21 15:51 Urine Cocaine Screen Negative (NEG=<300) 09/14/21 15:51 U Marijuana (THC) Screen Positive (NEG=<50) A 09/14/21 15:51 SARS-CoV-2 (PCR) Negative (NEGATIVE) 09/14/21 15:51 Reason For Visit: INCARCERATED R INGUINAL HERNIA Discharge Diagnosis All Active Problems (Updated 09/14/21 @ 17:53 by Shane Guzman) Fracture of hand (Active) Abscess (Acute) Abdominal pain (Acute) Drug abuse (Acute) Contusion of right hand (Acute) Hematoma (Acute) Puncture wound (Acute) Depression with suicidal ideation (Acute) Polysubstance abuse (Acute) Cellulitis of great toe of right foot (Acute) Inguinal hernia of right side without obstruction or gangrene (Acute) Incarcerated right inguinal hernia (Acute) Plan of Treatment: Continue with present treatment and follow up plan. Pt is to keep follow up appointment as instructed and take medications as ordered. Discharge Medications Discharge Medications: No Known Drug Allergies Allergy (Verified 03/02/17 20:58) New Prescriptions oxycodone-acetaminophen 5 mg-325 mg tablet (Percocet) 1 tab PO Q6H PRN #30 tabs 09/16/21 [Rx] Discharge Disposition Assessment: see hospital course above Discharge Plan Discharge Plan Hospital Course: 40 yo male presented with incarcerated hernia of the right groin that could not be reduced. He has been seen multiple times in the ER for this hernia when it was reducible and would be refereed to a surgeon but never went to the appointments . He was admitted and the next day 09/15/2021 he underwent repair of an incarcerated right direct inguinal hernia . He is to be discharged today on Percocet, 5mg , 1 by mouth every 6 hrs PRN pain. He will follow up with Dr. Bennett in 1 week in the office. Patient has history of drug rehab for cannibus in the past and expressed a desire to go back. He was referred to do this on his own. His drug screen on admission was positive only for THC. Patient Disposition: HOME HEALTH SERVICE Condition: Stable Health Concerns: Post Hospitalization: new medications and changes needed to prevent readmission or further decline. Pt educated and given instructions on all concerns. Care Plan Goals: Problem: Pain/Alteration in Comfort Goal: Improve/ Resolve Pain; Achieve Pain Tolerance Instructions: Take pain medications as prescribed. Contact your primary care provider if your pain is unrelieved or worsens. Follow up with primary care provider as directed. Plan of Treatment: Continue with present treatment and follow up plan. Pt is to keep follow up appointment as instructed and take medications as ordered. Assessment: see hospital course above Prescription drug monitoring program results: PDMP reviewed and no concerns identified Prescriptions: New oxycodone-acetaminophen [Percocet] 5-325 mg tablet 1 tab PO Q6H MDD 4 PRNQty: 30 0RF No Action NK Follow ups/Referrals Follow ups/Referrals: Roger Bennett [STAFF PHYSICIAN] - 1 WEEK Instructions Instructions: Hernia, Adult, [id number] Stand Alone Forms: Excuse From Work or School, Precautions for COVID19, [facility], Patient Portal, Social Distancing
--- NOTE | 2021-09-16 16:04 | DR.OPNOTE ---
OP NOTE Pre-Op Diagnosis: Incarcerated right inguinal Post-Op Diagnosis: Incarcerated direct inguinal hernia Procedure Date Date Of Procedure: 09/15/21 Procedure: PROCEDURE: OPEN REPAIR RIGHT DIRECT INGUINAL HERNIA NARRATIVE : The patient was taken to the operative suite and placed in supine position. General endotracheal anesthesia was induced. The skin of the entire right groin and right scrotum prepped and draped in sterile fashion. Time out for the procedure obtained . Standard right inguinal incision was made with a number 10 blade knife . Subcutaneous tissue divided with electrocautery . External oblique fascia opened through the external ring with Metzenbaum scissors . Hernia had been reduced after anesthesia had been started. Dickens drain was placed around the inguinal contents . I dissected the cord structures away from the hernia which appeared to be incarcerated omentum originating from a direct defect. The hernia sac and omentum were inverted through the defect. The floor of the inguinal canal was repaired and buttressed with 2-0 silk sutures approximating the shelving edge of the inguinal ligament to the internal oblique fascia . Then a relaxing incision was made using electrocautery incise the internal oblique fascia medially . Light weight Prolene mesh was placed on inguinal floor and sutured with 2-0 Prolene suture to the pubic tubercle , internal oblique fascia medially and laterally to the shelving edge of the inguinal ligament .The mesh was divided posteriorly creating two tails which were placed around the cord structures and sutured to itself. The area was irrigated . External oblique fascia closed with running 3-0 Vicryl suture Subcutaneous tissue closed with running 3-0 Vicryl suture. Skin closed with running 5-0 Vicryl subcuticular suture .A total of 20 cc's of 0. 5 % Marcaine ejected in the elvis-operative space. Patient was extubated and taken to the recovery room in good condition. Type of Anesthesia: General Anesthetic w/ETT Findings: Incarcerated direct right inguinal hernia Specimen/Pathology: none Type of Fluids Used:: Lactated Ringers EBL: minimal Needle/Sponge Count:: correct Disposition/Condition: Pt. tolerated procedure without difficulty. Extubated in the OR and taken to PACU in stable condition.
== END 2021-09-16 16:29 | disposition home health service (06) ==
LOC: ER 15:25 → MED/SURG 15:25
PROVIDERS: ADMIT Surgery; ATTEND Surgery
DX: I10 Essential (primary) hypertension; K40.30 Unilateral inguinal hernia, with obstruction, without gangrene, not specified as recurrent; R73.09 Other abnormal glucose; Z20.822 Contact with and (suspected) exposure to COVID-19; F12.10 Cannabis abuse, uncomplicated